=== PATIENT | female | born 1940 | race Caucasian/White ===

== ENCOUNTER 2018-08-15 11:00 | Inpatient (IN) | payer MEDICARE, MEDICAID ==
[2018-08-15] MEDS ORDERED: HALOPERIDOL 5 MG INJ (11:09)
[2018-08-15] MEDS: SOD CHLORIDE 0.9% 1,000 ML IV (11:51)
[2018-08-15] MEDS: HALOPERIDOL 5 MG INJ IV (11:51)
[2018-08-15 12:08] LABS: ADD MAN DIFF? NO
[2018-08-15 12:29] LABS: WHITE BLOOD COUNT 6.9 10^3/ul (4.8-10.8)
[2018-08-15 12:29] LABS: ABNORMAL IP MESSAGE 1; BASOPHILS % 0.4 % (0.0-2.0); EOSINOPHILS # 0.1 10^3/ul (0.0-0.5); EOSINOPHILS % 0.7 % (0.0-7.0); HEMATOCRIT 34.1 % (37.0-47.0); HEMOGLOBIN 11.9 g/dl (12.0-16.0); LYMPHOCYTES # 1.4 10^3/ul (0.8-2.9); LYMPHOCYTES % 20.7 % (15.0-51.0); MEAN CORPUSCULAR HEMOGLOBIN 32.6 pg (29.0-33.0); MEAN CORPUSCULAR HGB CONC 34.9 g/dl (32.0-37.0); MEAN CORPUSCULAR VOLUME 93.4 fl (82.0-101.0); MEAN PLATELET VOLUME 11.3 fl (7.4-10.4); MONOCYTE # 0.3 10^3/ul (0.3-0.9); MONOCYTES % 3.6 % (0.0-11.0); NEUTROPHIL # 4.7 10^3/ul (1.6-7.5); NEUTROPHILS % 68.9 % (39.0-77.0); PLATELET COUNT 136 10^3/UL (140-415); RED BLOOD COUNT 3.65 10^6/ul (4.20-5.40); RED CELL DISTRIBUTION WIDTH 12.1 % (11.5-14.5)
[2018-08-15 12:31] LABS: INR 1.16; PROTIME 14.9 Sec (11.9-14.9); PT RATIO 1.2
[2018-08-15 12:32] LABS: PARTIAL THROMBOPLASTIN TIME 37.1 Sec (23.0-35.0)
[2018-08-15 12:41] LABS: POSITIVE DIFF @See below
[2018-08-15 12:43] LABS: ALANINE AMINOTRANSFERASE 47 IU/L (13-69); ALBUMIN 3.7 g/dl (3.3-4.9); ALBUMIN/GLOBULIN RATIO 1.27; ALKALINE PHOSPHATASE 61 IU/L (42-121); ANION GAP 7 (5-13); ASPARTATE AMINO TRANSFERASE 44 IU/L (15-46); BILIRUBIN,INDIRECT 0.7 mg/dl (0-1.1); BILIRUBIN,TOTAL 0.7 mg/dl (0.2-1.3); BLOOD UREA NITROGEN 18 mg/dl (7-20); CALCIUM 8.8 mg/dl (8.4-10.2); CARBON DIOXIDE 25 mmol/L (21-31); CHLORIDE 107 mmol/L (97-110); CREATININE 0.81 mg/dl (0.44-1.00); GLUCOSE 136 mg/dl (70-220); POTASSIUM 4.4 mmol/L (3.5-5.1); SODIUM 139 mmol/L (135-144); TOTAL PROTEIN 6.6 g/dl (6.1-8.1)
[2018-08-15 12:44] LABS: ACETAMINOPHEN < 10.0 ug/ml (10.0-30.0); ETHANOL < 10.0 mg/dl (0-0); SALICYLATE < 1.0 mg/dl (5.0-30.0)
[2018-08-15 12:52] LABS: TROPONIN-I 0.106 ng/ml (0.000-0.120)
[2018-08-15] MEDS: LORAZEPAM 2 MG INJ IV (13:49)
[2018-08-15] MEDS ORDERED: ONDANSETRON 4 MG INJ IV ×2 (14:00→16:00)
[2018-08-15] MEDS ORDERED: ACETAMINOPHEN 325 MG TAB PO ×2 (14:00→16:00)
[2018-08-15] MEDS ORDERED: NACL 0.9% 3 ML SYG IV (16:00)
[2018-08-15] MEDS ORDERED: LORAZEPAM 2 MG INJ IV (16:00)
[2018-08-15] MEDS ORDERED: MAGNESIUM HYDROXIDE 30ML CUP PO (16:00)
[2018-08-15] MEDS ORDERED: DOCUSATE SODIUM 100 MG CAP PO (16:00)
[2018-08-15 16:37] LABS: ADD UMIC NO; UR ASCORBIC ACID 20 mg/dL (NEGATIVE); UR BACTERIA FEW /HPF (NONE SEEN); UR BILIRUBIN (Dip) NEGATIVE (NEGATIVE); UR BLOOD (Dip) NEGATIVE (NEGATIVE); UR CLARITY SLIGHTLY CLOUDY (CLEAR); UR COLOR YELLOW (YELLOW); UR GLUCOSE (Dip) NEGATIVE (NEGATIVE); UR KETONES (Dip) NEGATIVE (NEGATIVE); UR LEUKOCYTE ESTERASE (Dip) NEGATIVE Leu/ul (NEGATIVE); UR MUCUS FEW /HPF (NONE SEEN); UR NITRITE (Dip) NEGATIVE (NEGATIVE); UR RBC 1 /HPF (0-5); UR SPECIFIC GRAVITY (Dip) 1.015 (1.003-1.030); UR TOTAL PROTEIN (Dip) NEGATIVE (NEGATIVE); UR UROBILINOGEN (Dip) NEGATIVE (NEGATIVE); UR WBC 1 /HPF (0-5)
[2018-08-15 17:03] LABS: AMPHETAMINE/METHAMPHETAMINE Negative (NEGATIVE); BARBITURATES Negative (NEGATIVE); BENZODIAZEPINES Negative (NEGATIVE); CANNABINOIDS Negative (NEGATIVE); COCAINE Negative (NEGATIVE); OPIATES Negative (NEGATIVE)
[2018-08-15] MEDS: DEXTROSE 5%-0.45% NACL 1,000 ML IV (20:14)
[2018-08-15] MEDS: FAMOTIDINE 20 MG INJ IV (20:17)
[2018-08-15] MEDS: CHLORHEXIDINE GLUCONATE 15 ML UD CUP MT (20:17)
[2018-08-15 22:37] LABS: FREE THYROXINE INDEX (Calc) 2.63 ug/ml (0.65-3.89); T3 UPTAKE 32.5 % (23.5-40.5); T4 (THYROXINE) 8.1 ug/dl (5.5-11.0)
[2018-08-16] MEDS: ACETAMINOPHEN 650 MG SUPP PR (00:53)
[2018-08-16] MEDS ORDERED: VANCOMYCIN IV PER PHARMACY XX (03:30)
[2018-08-16] MEDS: LEVOFLOXACIN 750MG/D5W (PMX) 150 ML IVPB (03:38)
[2018-08-16 05:29] LABS: ADD MAN DIFF? NO
[2018-08-16 05:35] LABS: BASOPHILS % 0.2 % (0.0-2.0); EOSINOPHILS % 0.1 % (0.0-7.0); HEMATOCRIT 34.7 % (37.0-47.0); HEMOGLOBIN 12.3 g/dl (12.0-16.0); LYMPHOCYTES # 0.6 10^3/ul (0.8-2.9); LYMPHOCYTES % 6.2 % (15.0-51.0); MEAN CORPUSCULAR HEMOGLOBIN 32.5 pg (29.0-33.0); MEAN CORPUSCULAR HGB CONC 35.4 g/dl (32.0-37.0); MEAN CORPUSCULAR VOLUME 91.8 fl (82.0-101.0); MEAN PLATELET VOLUME 11.2 fl (7.4-10.4); MONOCYTE # 0.5 10^3/ul (0.3-0.9); MONOCYTES % 4.8 % (0.0-11.0); NEUTROPHIL # 8.6 10^3/ul (1.6-7.5); PLATELET COUNT 105 10^3/UL (140-415); RED BLOOD COUNT 3.78 10^6/ul (4.20-5.40); RED CELL DISTRIBUTION WIDTH 12.3 % (11.5-14.5)
[2018-08-16 05:35] LABS: WHITE BLOOD COUNT 9.7 10^3/ul (4.8-10.8)
[2018-08-16] MEDS: DEXTROSE 5%-0.45% NACL 1,000 ML IV ×2 (05:48→15:24)
[2018-08-16] MEDS: VANCOMYCIN 1 GM 250 ML IVPB (05:48)
[2018-08-16 06:07] LABS: ANION GAP 9 (5-13); BLOOD UREA NITROGEN 16 mg/dl (7-20); CALCIUM 8.6 mg/dl (8.4-10.2); CARBON DIOXIDE 24 mmol/L (21-31); CHLORIDE 107 mmol/L (97-110); CREATININE 0.84 mg/dl (0.44-1.00); GLUCOSE 140 mg/dl (70-220); MAGNESIUM 1.9 mg/dl (1.7-2.5); POTASSIUM 4.8 mmol/L (3.5-5.1); SODIUM 140 mmol/L (135-144)
[2018-08-16 06:12] LABS: LACTIC ACID 4.3 mmol/L (0.5-2.0)
[2018-08-16] MEDS: SOD CHLORIDE 0.9% 500 ML IV (06:42)
[2018-08-16] MEDS: CHLORHEXIDINE GLUCONATE 15 ML UD CUP MT ×2 (08:12→21:08)
[2018-08-16] MEDS: ENOXAPARIN 40 MG/0.4 ML SYG SC (08:15)
[2018-08-16 14:39] LABS: LACTIC ACID 3.8 mmol/L (0.5-2.0)
[2018-08-16] MEDS: FAMOTIDINE 20 MG INJ IV (21:08)
[2018-08-17] MEDS: LEVOFLOXACIN 750MG/D5W (PMX) 150 ML IVPB (03:49)
[2018-08-17] MEDS: DEXTROSE 5%-0.45% NACL 1,000 ML IV ×2 (03:56→22:00)
[2018-08-17] MEDS: VANCOMYCIN 750 MG (PMX) 250 ML IVPB (05:22)
[2018-08-17 05:40] LABS: ADD MAN DIFF? NO
[2018-08-17 05:45] LABS: WHITE BLOOD COUNT 7.5 10^3/ul (4.8-10.8)
[2018-08-17 05:45] LABS: ABNORMAL IP MESSAGE 1; BASOPHILS % 0.1 % (0.0-2.0); EOSINOPHILS % 0.4 % (0.0-7.0); HEMATOCRIT 30.4 % (37.0-47.0); HEMOGLOBIN 10.8 g/dl (12.0-16.0); LYMPHOCYTES # 0.5 10^3/ul (0.8-2.9); LYMPHOCYTES % 6.9 % (15.0-51.0); MEAN CORPUSCULAR HEMOGLOBIN 32.5 pg (29.0-33.0); MEAN CORPUSCULAR HGB CONC 35.5 g/dl (32.0-37.0); MEAN CORPUSCULAR VOLUME 91.6 fl (82.0-101.0); MEAN PLATELET VOLUME 11.3 fl (7.4-10.4); MONOCYTE # 0.4 10^3/ul (0.3-0.9); MONOCYTES % 5.6 % (0.0-11.0); NEUTROPHIL # 6.5 10^3/ul (1.6-7.5); NEUTROPHILS % 86.5 % (39.0-77.0); PLATELET COUNT 87 10^3/UL (140-415); RED BLOOD COUNT 3.32 10^6/ul (4.20-5.40); RED CELL DISTRIBUTION WIDTH 12.2 % (11.5-14.5)
[2018-08-17 05:54] LABS: POSITIVE DIFF @See below
[2018-08-17 06:52] LABS: LACTIC ACID 2.3 mmol/L (0.5-2.0)
[2018-08-17] MEDS: SOD CHLORIDE 0.9% 500 ML IV (07:23)
[2018-08-17 08:29] LABS: ALBUMIN 3.1 g/dl (3.3-4.9); ANION GAP 9 (5-13); BLOOD UREA NITROGEN 11 mg/dl (7-20); CALCIUM 8.5 mg/dl (8.4-10.2); CARBON DIOXIDE 23 mmol/L (21-31); CHLORIDE 106 mmol/L (97-110); CREATININE 0.81 mg/dl (0.44-1.00); GLUCOSE 136 mg/dl (70-220); MAGNESIUM 1.9 mg/dl (1.7-2.5); PHOSPHORUS 2.9 mg/dl (2.5-4.9); POTASSIUM 4.2 mmol/L (3.5-5.1); SODIUM 138 mmol/L (135-144)
[2018-08-17] MEDS: CHLORHEXIDINE GLUCONATE 15 ML UD CUP MT ×2 (08:35→21:28)
[2018-08-17] MEDS: ENOXAPARIN 40 MG/0.4 ML SYG SC (08:38)
[2018-08-17 13:02] LABS: LACTIC ACID 1.8 mmol/L (0.5-2.0)
[2018-08-17 16:52] LABS: PROCALCITONIN 0.68 ng/mL (0.00-0.10)
[2018-08-17] MEDS: FAMOTIDINE 20 MG INJ IV (21:28)
[2018-08-18] MEDS: VANCOMYCIN 750 MG (PMX) 250 ML IVPB (04:29)
[2018-08-18] MEDS: LEVOFLOXACIN 750MG/D5W (PMX) 150 ML IVPB (04:29)
[2018-08-18 05:17] LABS: ADD MAN DIFF? NO
[2018-08-18 05:26] LABS: WHITE BLOOD COUNT 6.2 10^3/ul (4.8-10.8)
[2018-08-18 05:26] LABS: ABNORMAL IP MESSAGE 1; BASOPHILS % 0.3 % (0.0-2.0); EOSINOPHILS # 0.1 10^3/ul (0.0-0.5); EOSINOPHILS % 2.3 % (0.0-7.0); HEMATOCRIT 29.7 % (37.0-47.0); HEMOGLOBIN 10.5 g/dl (12.0-16.0); LYMPHOCYTES # 0.8 10^3/ul (0.8-2.9); LYMPHOCYTES % 12.9 % (15.0-51.0); MEAN CORPUSCULAR HEMOGLOBIN 31.8 pg (29.0-33.0); MEAN CORPUSCULAR HGB CONC 35.4 g/dl (32.0-37.0); MEAN PLATELET VOLUME 11.1 fl (7.4-10.4); MONOCYTE # 0.4 10^3/ul (0.3-0.9); MONOCYTES % 5.8 % (0.0-11.0); NEUTROPHIL # 4.8 10^3/ul (1.6-7.5); NEUTROPHILS % 78.1 % (39.0-77.0); PLATELET COUNT 88 10^3/UL (140-415); RED CELL DISTRIBUTION WIDTH 12.3 % (11.5-14.5)
[2018-08-18 05:54] LABS: POSITIVE DIFF @See below
[2018-08-18 06:23] LABS: ALBUMIN 3.2 g/dl (3.3-4.9); ANION GAP 10 (5-13); BLOOD UREA NITROGEN 8 mg/dl (7-20); CALCIUM 8.3 mg/dl (8.4-10.2); CARBON DIOXIDE 21 mmol/L (21-31); CHLORIDE 107 mmol/L (97-110); GLUCOSE 133 mg/dl (70-220); MAGNESIUM 1.9 mg/dl (1.7-2.5); PHOSPHORUS 3.2 mg/dl (2.5-4.9); POTASSIUM 3.5 mmol/L (3.5-5.1); SODIUM 138 mmol/L (135-144)
[2018-08-18] MEDS: CHLORHEXIDINE GLUCONATE 15 ML UD CUP MT ×2 (08:33→20:28)
[2018-08-18] MEDS: ENOXAPARIN 40 MG/0.4 ML SYG SC (08:39)
[2018-08-18] MEDS: DEXTROSE 5%-0.45% NACL 1,000 ML IV ×2 (10:27→23:42)
[2018-08-18] MEDS: ASPIRIN 300 MG SUPP PR (13:04)
[2018-08-18] MEDS: FAMOTIDINE 20 MG INJ IV (20:28)
[2018-08-19] MEDS: LEVOFLOXACIN 500MG/D5W (PMX) 100 ML IVPB (03:40)
[2018-08-19 04:01] LABS: ADD MAN DIFF? NO
[2018-08-19 04:08] LABS: ABNORMAL IP MESSAGE 1; BASOPHILS % 0.4 % (0.0-2.0); EOSINOPHILS # 0.2 10^3/ul (0.0-0.5); EOSINOPHILS % 4.3 % (0.0-7.0); LYMPHOCYTES # 0.8 10^3/ul (0.8-2.9); LYMPHOCYTES % 16.5 % (15.0-51.0); MEAN CORPUSCULAR HEMOGLOBIN 33.1 pg (29.0-33.0); MEAN CORPUSCULAR VOLUME 89.4 fl (82.0-101.0); MEAN PLATELET VOLUME 10.6 fl (7.4-10.4); MONOCYTE # 0.4 10^3/ul (0.3-0.9); MONOCYTES % 8.7 % (0.0-11.0); NEUTROPHIL # 3.4 10^3/ul (1.6-7.5); NEUTROPHILS % 69.5 % (39.0-77.0); PLATELET COUNT 88 10^3/UL (140-415); RED BLOOD COUNT 3.02 10^6/ul (4.20-5.40); RED CELL DISTRIBUTION WIDTH 12.2 % (11.5-14.5)
[2018-08-19 04:08] LABS: WHITE BLOOD COUNT 4.9 10^3/ul (4.8-10.8)
[2018-08-19 04:09] LABS: POSITIVE DIFF @See below
[2018-08-19 04:31] LABS: ANION GAP 7 (5-13); BLOOD UREA NITROGEN 7 mg/dl (7-20); CALCIUM 8.1 mg/dl (8.4-10.2); CARBON DIOXIDE 27 mmol/L (21-31); CHLORIDE 105 mmol/L (97-110); CREATININE 0.76 mg/dl (0.44-1.00); GLUCOSE 118 mg/dl (70-220); MAGNESIUM 1.7 mg/dl (1.7-2.5); PHOSPHORUS 3.3 mg/dl (2.5-4.9); SODIUM 139 mmol/L (135-144)
[2018-08-19 04:41] LABS: POTASSIUM 2.9 mmol/L (3.5-5.1)
[2018-08-19 04:43] LABS: VANCOMYCIN,TROUGH 5.8 ug/ml (10.0-20.0)
[2018-08-19] MEDS: VANCOMYCIN 750 MG (PMX) 250 ML IVPB (05:33)
[2018-08-19 05:43] LABS: POTASSIUM 3.1 mmol/L (3.5-5.1)
[2018-08-19] MEDS: POTASSIUM CHLORIDE 100 ML IVPB (09:00)
[2018-08-19] MEDS: ASPIRIN 300 MG SUPP PR (09:04)
[2018-08-19] MEDS: CHLORHEXIDINE GLUCONATE 15 ML UD CUP MT ×2 (09:04→21:49)
[2018-08-19] MEDS: ENOXAPARIN 40 MG/0.4 ML SYG SC (09:11)
[2018-08-19] MEDS: POTASSIUM CHLORIDE 50 ML IVPB (11:49)
[2018-08-19] MEDS: DEXTROSE 5%-0.45% NACL 1,000 ML IV (14:02)
[2018-08-19] MEDS ORDERED: VANCOMYCIN 750 MG (PMX) 250 ML IVPB (17:00)
[2018-08-19] MEDS: FAMOTIDINE 20 MG INJ IV (21:49)
[2018-08-20] MEDS: DEXTROSE 5%-0.45% NACL 1,000 ML IV ×2 (02:26→15:43)
[2018-08-20 05:52] LABS: ADD MAN DIFF? NO
[2018-08-20 05:57] LABS: ABNORMAL IP MESSAGE 1; BASOPHILS % 0.6 % (0.0-2.0); EOSINOPHILS # 0.2 10^3/ul (0.0-0.5); EOSINOPHILS % 6.1 % (0.0-7.0); HEMATOCRIT 24.2 % (37.0-47.0); HEMOGLOBIN 8.7 g/dl (12.0-16.0); LYMPHOCYTES # 0.8 10^3/ul (0.8-2.9); LYMPHOCYTES % 21.8 % (15.0-51.0); MEAN CORPUSCULAR VOLUME 91.7 fl (82.0-101.0); MEAN PLATELET VOLUME 10.6 fl (7.4-10.4); MONOCYTE # 0.4 10^3/ul (0.3-0.9); NEUTROPHIL # 2.1 10^3/ul (1.6-7.5); NEUTROPHILS % 58.9 % (39.0-77.0); PLATELET COUNT 86 10^3/UL (140-415); RED BLOOD COUNT 2.64 10^6/ul (4.20-5.40); RED CELL DISTRIBUTION WIDTH 12.1 % (11.5-14.5)
[2018-08-20 05:57] LABS: WHITE BLOOD COUNT 3.6 10^3/ul (4.8-10.8)
[2018-08-20 06:00] LABS: POSITIVE DIFF @See below
[2018-08-20 06:16] LABS: ANION GAP 7 (5-13); BLOOD UREA NITROGEN 6 mg/dl (7-20); CALCIUM 8.1 mg/dl (8.4-10.2); CARBON DIOXIDE 27 mmol/L (21-31); CHLORIDE 104 mmol/L (97-110); CREATININE 0.69 mg/dl (0.44-1.00); GLUCOSE 115 mg/dl (70-220); MAGNESIUM 1.8 mg/dl (1.7-2.5); PHOSPHORUS 3.8 mg/dl (2.5-4.9); POTASSIUM 3.6 mmol/L (3.5-5.1); SODIUM 138 mmol/L (135-144)
[2018-08-20] MEDS: CHLORHEXIDINE GLUCONATE 15 ML UD CUP MT ×2 (08:43→22:03)
[2018-08-20] MEDS: FAMOTIDINE 20 MG INJ IV ×2 (08:44→22:02)
[2018-08-20] MEDS: ASPIRIN 300 MG SUPP PR (09:00)
[2018-08-20] MEDS: ENOXAPARIN 40 MG/0.4 ML SYG SC (09:00)
[2018-08-20 09:50] LABS: HEMATOCRIT 26.6 % (37.0-47.0); HEMOGLOBIN 9.4 g/dl (12.0-16.0)
[2018-08-20] MEDS: LEVOFLOXACIN 500MG/D5W (PMX) 100 ML IVPB (13:48)
[2018-08-20] MEDS: AMLODIPINE 5 MG TAB PO (13:50)
[2018-08-21 05:52] LABS: ADD MAN DIFF? NO
[2018-08-21 06:03] LABS: WHITE BLOOD COUNT 3.1 10^3/ul (4.8-10.8)
[2018-08-21 06:03] LABS: ABNORMAL IP MESSAGE 1; BASOPHILS % 0.3 % (0.0-2.0); EOSINOPHILS # 0.2 10^3/ul (0.0-0.5); EOSINOPHILS % 5.5 % (0.0-7.0); HEMATOCRIT 24.7 % (37.0-47.0); HEMOGLOBIN 8.8 g/dl (12.0-16.0); LYMPHOCYTES # 0.8 10^3/ul (0.8-2.9); LYMPHOCYTES % 25.3 % (15.0-51.0); MEAN CORPUSCULAR HEMOGLOBIN 31.8 pg (29.0-33.0); MEAN CORPUSCULAR HGB CONC 35.6 g/dl (32.0-37.0); MEAN CORPUSCULAR VOLUME 89.2 fl (82.0-101.0); MEAN PLATELET VOLUME 11.2 fl (7.4-10.4); MONOCYTE # 0.4 10^3/ul (0.3-0.9); NEUTROPHIL # 1.7 10^3/ul (1.6-7.5); NEUTROPHILS % 55.3 % (39.0-77.0); PLATELET COUNT 76 10^3/UL (140-415); RED BLOOD COUNT 2.77 10^6/ul (4.20-5.40)
[2018-08-21 06:26] LABS: POSITIVE DIFF @See below
[2018-08-21 06:41] LABS: ANION GAP 9 (5-13); BLOOD UREA NITROGEN 8 mg/dl (7-20); CALCIUM 7.9 mg/dl (8.4-10.2); CARBON DIOXIDE 24 mmol/L (21-31); CHLORIDE 105 mmol/L (97-110); CREATININE 0.64 mg/dl (0.44-1.00); GLUCOSE 95 mg/dl (70-220); MAGNESIUM 1.8 mg/dl (1.7-2.5); PHOSPHORUS 3.8 mg/dl (2.5-4.9); POTASSIUM 3.5 mmol/L (3.5-5.1); SODIUM 138 mmol/L (135-144)
[2018-08-21] MEDS: FAMOTIDINE 20 MG INJ IV ×2 (09:35→21:19)
[2018-08-21] MEDS: ASPIRIN 81 MG TAB PO (09:35)
[2018-08-21] MEDS: AMLODIPINE 5 MG TAB PO (09:35)
[2018-08-21] MEDS: CHLORHEXIDINE GLUCONATE 15 ML UD CUP MT ×2 (09:36→21:19)
[2018-08-21] MEDS: LEVOFLOXACIN 500MG/D5W (PMX) 100 ML IVPB (12:36)
[2018-08-22 05:21] LABS: ADD MAN DIFF? NO
[2018-08-22 05:24] LABS: WHITE BLOOD COUNT 3.2 10^3/ul (4.8-10.8)
[2018-08-22 05:24] LABS: BASOPHILS % 0.3 % (0.0-2.0); EOSINOPHILS # 0.2 10^3/ul (0.0-0.5); EOSINOPHILS % 5.4 % (0.0-7.0); HEMATOCRIT 24.9 % (37.0-47.0); HEMOGLOBIN 8.8 g/dl (12.0-16.0); LYMPHOCYTES # 0.9 10^3/ul (0.8-2.9); LYMPHOCYTES % 27.2 % (15.0-51.0); MEAN CORPUSCULAR HEMOGLOBIN 32.2 pg (29.0-33.0); MEAN CORPUSCULAR HGB CONC 35.3 g/dl (32.0-37.0); MEAN CORPUSCULAR VOLUME 91.2 fl (82.0-101.0); MEAN PLATELET VOLUME 9.7 fl (7.4-10.4); MONOCYTE # 0.4 10^3/ul (0.3-0.9); MONOCYTES % 11.1 % (0.0-11.0); NEUTROPHIL # 1.7 10^3/ul (1.6-7.5); NEUTROPHILS % 55.1 % (39.0-77.0); PLATELET COUNT 108 10^3/UL (140-415); RED BLOOD COUNT 2.73 10^6/ul (4.20-5.40); RED CELL DISTRIBUTION WIDTH 12.2 % (11.5-14.5)
[2018-08-22 05:43] LABS: ANION GAP 6 (5-13); BLOOD UREA NITROGEN 8 mg/dl (7-20); CALCIUM 8.1 mg/dl (8.4-10.2); CARBON DIOXIDE 29 mmol/L (21-31); CHLORIDE 104 mmol/L (97-110); CREATININE 0.76 mg/dl (0.44-1.00); GLUCOSE 97 mg/dl (70-220); MAGNESIUM 1.9 mg/dl (1.7-2.5); PHOSPHORUS 3.4 mg/dl (2.5-4.9); POTASSIUM 3.3 mmol/L (3.5-5.1); SODIUM 139 mmol/L (135-144)
[2018-08-22] MEDS: CHLORHEXIDINE GLUCONATE 15 ML UD CUP MT ×3 (09:00→20:38)
[2018-08-22] MEDS: ASPIRIN 81 MG TAB PO (09:48)
[2018-08-22] MEDS: FAMOTIDINE 20 MG INJ IV (09:48)
[2018-08-22] MEDS: AMLODIPINE 5 MG TAB PO (09:48)
[2018-08-22] MEDS: POTASSIUM CHLORIDE 20 MEQ POWDER FOR ORAL SOLN PO (09:49)
[2018-08-22] MEDS: LEVOFLOXACIN 500MG/D5W (PMX) 100 ML IVPB (11:57)
[2018-08-23 06:32] LABS: ADD MAN DIFF? NO
[2018-08-23] MEDS: LEVOFLOXACIN 500 MG TAB PO (06:33)
[2018-08-23 06:46] LABS: WHITE BLOOD COUNT 3.8 10^3/ul (4.8-10.8)
[2018-08-23 06:46] LABS: BASOPHILS % 0.5 % (0.0-2.0); EOSINOPHILS # 0.1 10^3/ul (0.0-0.5); EOSINOPHILS % 3.4 % (0.0-7.0); HEMATOCRIT 25.3 % (37.0-47.0); LYMPHOCYTES # 0.9 10^3/ul (0.8-2.9); LYMPHOCYTES % 22.5 % (15.0-51.0); MEAN CORPUSCULAR HEMOGLOBIN 32.5 pg (29.0-33.0); MEAN CORPUSCULAR HGB CONC 35.6 g/dl (32.0-37.0); MEAN CORPUSCULAR VOLUME 91.3 fl (82.0-101.0); MEAN PLATELET VOLUME 9.7 fl (7.4-10.4); MONOCYTE # 0.4 10^3/ul (0.3-0.9); MONOCYTES % 11.3 % (0.0-11.0); NEUTROPHIL # 2.4 10^3/ul (1.6-7.5); NEUTROPHILS % 61.8 % (39.0-77.0); PLATELET COUNT 145 10^3/UL (140-415); RED BLOOD COUNT 2.77 10^6/ul (4.20-5.40); RED CELL DISTRIBUTION WIDTH 12.2 % (11.5-14.5)
[2018-08-23 08:14] LABS: POTASSIUM 4.1 mmol/L (3.5-5.1); SODIUM 139 mmol/L (135-144)
[2018-08-23 08:15] LABS: ANION GAP 7 (5-13); BLOOD UREA NITROGEN 11 mg/dl (7-20); CALCIUM 8.7 mg/dl (8.4-10.2); CARBON DIOXIDE 29 mmol/L (21-31); CHLORIDE 103 mmol/L (97-110); CREATININE 0.77 mg/dl (0.44-1.00); GLUCOSE 103 mg/dl (70-220); PHOSPHORUS 3.5 mg/dl (2.5-4.9)
[2018-08-23] MEDS: CHLORHEXIDINE GLUCONATE 15 ML UD CUP MT ×2 (09:25→20:57)
[2018-08-23] MEDS: ASPIRIN 81 MG TAB PO (09:30)
[2018-08-23] MEDS: FAMOTIDINE 20 MG TAB PO (09:30)
[2018-08-23] MEDS: AMLODIPINE 5 MG TAB PO (09:30)
[2018-08-23] MEDS: ATORVASTATIN 40 MG TAB PO (20:57)
[2018-08-24 05:50] LABS: ADD MAN DIFF? NO
[2018-08-24 05:57] LABS: BASOPHILS % 0.4 % (0.0-2.0); EOSINOPHILS # 0.2 10^3/ul (0.0-0.5); EOSINOPHILS % 3.9 % (0.0-7.0); HEMOGLOBIN 9.5 g/dl (12.0-16.0); LYMPHOCYTES # 1.2 10^3/ul (0.8-2.9); LYMPHOCYTES % 25.4 % (15.0-51.0); MEAN CORPUSCULAR HEMOGLOBIN 32.1 pg (29.0-33.0); MEAN CORPUSCULAR HGB CONC 35.2 g/dl (32.0-37.0); MEAN CORPUSCULAR VOLUME 91.2 fl (82.0-101.0); MEAN PLATELET VOLUME 9.4 fl (7.4-10.4); MONOCYTE # 0.5 10^3/ul (0.3-0.9); MONOCYTES % 10.3 % (0.0-11.0); NEUTROPHIL # 2.8 10^3/ul (1.6-7.5); NEUTROPHILS % 59.6 % (39.0-77.0); PLATELET COUNT 183 10^3/UL (140-415); RED BLOOD COUNT 2.96 10^6/ul (4.20-5.40); RED CELL DISTRIBUTION WIDTH 12.2 % (11.5-14.5)
[2018-08-24 05:57] LABS: WHITE BLOOD COUNT 4.7 10^3/ul (4.8-10.8)
[2018-08-24 06:34] LABS: ANION GAP 7 (5-13); BLOOD UREA NITROGEN 13 mg/dl (7-20); CALCIUM 8.6 mg/dl (8.4-10.2); CARBON DIOXIDE 29 mmol/L (21-31); CHLORIDE 103 mmol/L (97-110); CREATININE 0.68 mg/dl (0.44-1.00); GLUCOSE 102 mg/dl (70-220); MAGNESIUM 2.1 mg/dl (1.7-2.5); PHOSPHORUS 3.8 mg/dl (2.5-4.9); POTASSIUM 3.9 mmol/L (3.5-5.1); SODIUM 139 mmol/L (135-144)
[2018-08-24] MEDS: LEVOFLOXACIN 250 MG TAB PO (06:34)
[2018-08-24] MEDS: FAMOTIDINE 20 MG TAB PO (08:34)
[2018-08-24] MEDS: AMLODIPINE 5 MG TAB PO (08:34)
[2018-08-24] MEDS: ASPIRIN 81 MG TAB PO (08:34)
[2018-08-24] MEDS: CHLORHEXIDINE GLUCONATE 15 ML UD CUP MT ×2 (08:34→21:16)
[2018-08-24] MEDS: ATORVASTATIN 40 MG TAB PO (21:16)
[2018-08-25] MEDS: LEVOFLOXACIN 250 MG TAB PO (06:23)
[2018-08-25] MEDS: FAMOTIDINE 20 MG TAB PO (08:52)
[2018-08-25] MEDS: CHLORHEXIDINE GLUCONATE 15 ML UD CUP MT ×2 (08:52→22:07)
[2018-08-25] MEDS: AMLODIPINE 5 MG TAB PO (08:52)
[2018-08-25] MEDS: ASPIRIN 81 MG TAB PO (08:52)
[2018-08-25] MEDS: ATORVASTATIN 40 MG TAB PO (22:07)
[2018-08-26] MEDS: LEVOFLOXACIN 250 MG TAB PO (06:12)
[2018-08-26] MEDS: ACETAMINOPHEN 650 MG SUPP PR (06:53)
[2018-08-26] MEDS: ASPIRIN 81 MG TAB PO (09:26)
[2018-08-26] MEDS: AMLODIPINE 5 MG TAB PO (09:26)
[2018-08-26] MEDS: FAMOTIDINE 20 MG TAB PO (09:26)
[2018-08-26] MEDS: CHLORHEXIDINE GLUCONATE 15 ML UD CUP MT (09:27)
[2018-08-26] MEDS: LORAZEPAM 2 MG INJ IV (12:55)
== END 2018-08-26 13:12 | disposition hospice, home (50) | DRG 70 ==
LOC: MS1 08-26 04:27 → E/R 11:00 → 6WM 13:45
DX: G93.40 Encephalopathy, unspecified (principal); J18.9 Pneumonia, unspecified organism; Z68.1 Body mass index [BMI] 19.9 or less, adult; E44.0 Moderate protein-calorie malnutrition; F03.90 Unspecified dementia, unspecified severity, without behavioral disturbance, psychotic disturbance, mood disturbance, and anxiety; M62.40 Contracture of muscle, unspecified site; D64.9 Anemia, unspecified; F02.80 Dementia in other diseases classified elsewhere, unspecified severity, without behavioral disturbance, psychotic disturbance, mood disturbance, and anxiety; J44.9 Chronic obstructive pulmonary disease, unspecified
CPT/HCPCS: 36415; 70450; 71045; 80048; 80053; 80069; 80202; 80307; 81001; 81003; 82962; 83605; 83735; 84100; 84132; 84145; 84436; 84479; 84484; 85014; 85018; 85025; 85610; 85730; 87040-91; 87081; 87086; 92526; 92610; 93005; 95819; 96374; 97163; 97166; 99285-25

== ENCOUNTER 2018-09-16 05:26 | Emergency (ER) | payer MEDICARE, MEDICAID | END 2018-09-16 10:56 | disposition home or self-care (01) | LOC: E/R 05:26 | DX: F03.90 Unspecified dementia, unspecified severity, without behavioral disturbance, psychotic disturbance, mood disturbance, and anxiety (principal); M25.552 Pain in left hip; R41.82 Altered mental status, unspecified; Z79.82 Long term (current) use of aspirin | CPT/HCPCS: 70450; 72125; 73520; 73521; 99284-25 ==